=== PATIENT | male | born 2000 | race Caucasian/White ===

== ENCOUNTER 2024-08-20 17:50 | Inpatient (IN) | payer BC ==
[2024-08-20] MEDS ORDERED: Ipratropium/Albuterol 3 ML NEB NEB PRN (18:15)
[2024-08-20] MEDS ORDERED: Morphine 2 MG/ML VIAL SLOW IVP PRN (18:15)
[2024-08-20] MEDS ORDERED: Ondansetron PF 4 MG/2 ML Vial IVP PRN (18:15)
[2024-08-20] MEDS ORDERED: traMADol HCl 50 MG TAB PO PRN (18:17)
[2024-08-20 18:20] LABS: #Basophils 0.03 10x3/uL (0.0-0.2); #Eosinophils Less than 0.03 10x3/uL (0.0-0.7); %Basophils 0.2 % (0.0-1.0); %Eosinophils 0.1 % (0.0-10.0); %Lymphocytes 11.9 % (21.0-51.0); %Monocytes 7.2 % (0.0-10.0); %Neutrophils 80.1 % (42.0-75.0); Hematocrit 40.9 % (42.0-52.0); Hemoglobin 14.4 g/dL (14.0-18.0); Mean Corpuscular HGB CONC 35.2 g/dL (32.0-36.0); Mean Corpuscular Volume 88.1 fL (78.0-98.0); Mean Platelet Volume 9.2 fL (7.4-10.4); Platelet Count 307 10x3/uL (130-400); RBC Distribution Width 12.8 % (11.5-14.5); Red Blood Cell (RBC) Count 4.64 mill/uL (4.70-6.10)
[2024-08-20 18:33] LABS: INR-International Normal Ratio 1.1; PTT 22.6 sec (22.9-36.1); Prothrombin Time 13.9 sec (12.0-14.7)
[2024-08-20 18:36] LABS: Acetaminophen Less than 10 mcg/mL (Less than 10); Alcohol Less than 10.0 mg/dL (Less than 10); Salicylate Less than 8.0 mg/dL (Less than 8.0)
[2024-08-20 18:37] LABS: ALT (SGPT) 23 U/L (8-55); AST (SGOT) 19 U/L (5-34); Alkaline Phosphatase 61 U/L (40-110); Anion Gap 15 mmol/L (10-20); BUN (Urea Nitrogen) 9 mg/dL (8.9-20.6); Bilirubin, Total 0.4 mg/dL (0.2-1.2); Calc. Creatinine Clearance 0 mL/min (70-130); Calcium 8.4 mg/dL (7.8-10.44); Carbon Dioxide 19 mmol/L (22-29); Chloride 109 mmol/L (98-107); Estimated GFR 126; Globulin 2.7 g/dL (2.4-3.5); Glucose 117 mg/dL (70-105); Potassium 3.3 mmol/L (3.5-5.1); Protein, Total 6.7 g/dL (6.0-8.3); Sodium 140 mmol/L (136-145)
[2024-08-20] MEDS ORDERED: PROPOFOL 20 ML ONE ×2 (18:37→19:06)
[2024-08-20] MEDS ORDERED: SUCCINYLCHOLINE/SOD CL,ISO/PF 200 MG/10 ML SYRINGE FS ONE (18:37)
[2024-08-20] MEDS ORDERED: Ondansetron PF 4 MG/2 ML Vial ONE (18:37)
[2024-08-20] MEDS ORDERED: Lidocaine 1% PF 5 ML VIAL ONE (18:38)
[2024-08-20] MEDS ORDERED: CEFAZOLIN 1 GM VIAL ONE (19:04)
[2024-08-20] MEDS ORDERED: fentaNYL PF 100 MCG/2 ML SYRINGE ONE ×2 (19:04→19:11)
[2024-08-20] MEDS ORDERED: Promethazine HCl 25 MG/ML VIAL ONE (20:41)
[2024-08-20 21:37] VITALS: BMI 42.6
[2024-08-20] MEDS ORDERED: HYDROmorphone 2 MG/ML VIAL SLOW IVP PRN (22:30)
[2024-08-20] MEDS ORDERED: Ondansetron HCl/PF 4 MG/2 ML Vial IVP PRN (22:30)
[2024-08-20] MEDS ORDERED: Promethazine HCl 25 MG/ML VIAL IM PRN (22:30)
[2024-08-20] MEDS: traMADol HCl 50 MG TAB PO SCH (22:42)
[2024-08-20] MEDS: Acetaminophen 325 MG TAB PO SCH (22:43)
[2024-08-20] MEDS: Famotidine/PF 20 mg/2ml Vial SLOW IVP SCH (22:43)
[2024-08-21] MEDS: Sodium Chloride 0.9% 1,000 ML IV SCH (02:59)
[2024-08-21 05:26] LABS: #Basophils Less than 0.03 10x3/uL (0.0-0.2); #Eosinophils Less than 0.03 10x3/uL (0.0-0.7); %Basophils 0.2 % (0.0-1.0); %Lymphocytes 15.3 % (21.0-51.0); %Monocytes 8.2 % (0.0-10.0); Hemoglobin 12.2 g/dL (14.0-18.0); Mean Corpuscular HGB CONC 33.9 g/dL (32.0-36.0); Mean Corpuscular Hemoglobin 30.7 pg (27.0-31.0); Mean Corpuscular Volume 90.5 fL (78.0-98.0); Platelet Count 281 10x3/uL (130-400); RBC Distribution Width 13.7 % (11.5-14.5); Red Blood Cell (RBC) Count 3.98 mill/uL (4.70-6.10)
[2024-08-21 05:41] LABS: INR-International Normal Ratio 1.1; PTT 25.2 sec (22.9-36.1); Prothrombin Time 14.5 sec (12.0-14.7)
[2024-08-21 06:12] LABS: Anion Gap 12 mmol/L (10-20); BUN (Urea Nitrogen) 8 mg/dL (8.9-20.6); Calc. Creatinine Clearance 286 mL/min (70-130); Carbon Dioxide 21 mmol/L (22-29); Chloride 108 mmol/L (98-107); Estimated GFR 131; Glucose 111 mg/dL (70-105); Potassium 3.9 mmol/L (3.5-5.1); Sodium 137 mmol/L (136-145)
[2024-08-21] MEDS ORDERED: E-Z-HD 98% W/W 340GM BOT (x-ray ONLY) ONE (06:58)
[2024-08-21] MEDS ORDERED: MD-Gastroview 120 ML BOT ONE (06:58)
[2024-08-21] MEDS ORDERED: Barium Sulfate 96% 176 GM BOT (xray ONLY) ONE (06:58)
[2024-08-21] MEDS: Heparin 5,000 UNITS/ML VIAL SC SCH (21:15)
[2024-08-22 07:42] VITALS: TEMP 98.2
[2024-08-22 11:11] VITALS: BP 137/92
== END 2024-08-22 15:18 | DRG 501 ==
LOC: ERS 17:50 → SDC/OP 18:47 → SURG B 21:21
PROVIDERS: ADMIT Surgery; ATTEND Surgery
PROC: 0KQB0ZZ Repair Left Lower Arm and Wrist Muscle, Open Approach (ICD-10-PCS; principal; 2024-08-20)
PROC: 0KQ30ZZ Repair Left Neck Muscle, Open Approach (ICD-10-PCS; 2024-08-20)
PROC: 30233N1 Transfusion of Nonautologous Red Blood Cells into Peripheral Vein, Percutaneous Approach (ICD-10-PCS; 2024-08-20)
DX: S56.822A Laceration of other muscles, fascia and tendons at forearm level, left arm, initial encounter (principal); D62 Acute posthemorrhagic anemia; S66.822A Laceration of other specified muscles, fascia and tendons at wrist and hand level, left hand, initial encounter; S16.2XXA Laceration of muscle, fascia and tendon at neck level, initial encounter; X78.8XXA Intentional self-harm by other sharp object, initial encounter; F32.A Depression, unspecified; Y93.89 Activity, other specified; Y92.89 Other specified places as the place of occurrence of the external cause
CPT/HCPCS: 36415; 36430; 70450; 70498; 74220; 80048; 80053; 80307; 84443; 85025; 85610; 85730; 86850; 86900; 86901; 94760; G0390; J0690; J2405; J2550; J2704; J3490; J7030; P9016; Q9963